=== PATIENT | female | born 2000 | race Caucasian/White ===

== ENCOUNTER → 2020-11-03 09:02 | Outpatient (BNVA) | payer OTHER, SELFPAY | PROVIDERS: Family Provider Pediatrics; Visit Provider Nurse Practitioner Family | DX: Z20.822 Contact with and (suspected) exposure to COVID-19 (principal) | CPT/HCPCS: 87635 ==

== ENCOUNTER → 2021-01-11 10:20 | Outpatient (BNVA) | payer BC, SELFPAY | PROVIDERS: Family Provider Pediatrics; Visit Provider Obstetrics & Gynecology | DX: N89.8 Other specified noninflammatory disorders of vagina (principal) | CPT/HCPCS: 87070; 87205; 87481; 87512; 87799 ==

== ENCOUNTER → 2021-02-22 09:01 | Outpatient (BNVA) | payer BC, SELFPAY | PROVIDERS: Family Provider Pediatrics; Visit Provider Nurse Practitioner Women's Health | DX: O20.0 Threatened abortion (principal); N92.6 Irregular menstruation, unspecified; Z3A.00 Weeks of gestation of pregnancy not specified | CPT/HCPCS: 81025; 84702; 85025; 86850; 86900; 87491; 87591; 87661 ==

== ENCOUNTER 2021-02-24 10:18 | Outpatient (CLI) | payer BC, SELFPAY ==
[2021-02-24 11:02] LABS: HCG Quantitative 1.38 mIU/mL
== END 2021-02-24 10:19 | disposition home or self-care (01) ==
LOC: LAB 10:22
PROVIDERS: PCP Nurse Practitioner Family; Visit Provider Nurse Practitioner Women's Health
DX: O20.0 Threatened abortion (principal)
CPT/HCPCS: 84702

== ENCOUNTER 2021-04-28 08:28 | Outpatient (CLI) | payer BC, SELFPAY ==
--- NOTE | 2021-04-28 08:42 | XR_ITS ---
WS: [id number] Exam: XR hip LT 2-3V wo/w pel* [id number] Date/Time of Exam: 04/28/2021 8:45 AM Reason For Exam: LEFT HIP JOINT PAIN Findings: No fractures or bone anomalies are noted. No unusual soft tissue masses or calcifications are seen. The bony elements of the hip are in adequate alignment. XR/XR hip LT 2-3V wo/w pel* [id number] IMPRESSION: Negative left hip. Tonnis classification: 0
== END 2021-04-28 08:29 | disposition home or self-care (01) ==
PROVIDERS: PCP Nurse Practitioner Family; Visit Provider Family Medicine
DX: M25.552 Pain in left hip (principal)
CPT/HCPCS: 73502